=== PATIENT | male | born 1970 | race Caucasian/White ===

== ENCOUNTER 2024-02-01 15:44 | Emergency (ER) | payer BC, SELFPAY ==
[2024-02-01 15:51] VITALS: BP 118/65; PULSE 57; RESP 12; TEMP 37.6; O2SAT 98
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
[2024-02-01] MEDS: Acetaminophen 500 MG TAB 1000 MG PO (18:33)
[2024-02-01 18:53] VITALS: BP 118/65; PULSE 57; RESP 12; TEMP 37.6; O2SAT 98
== END 2024-02-01 18:55 | disposition home or self-care (01) ==
PROVIDERS: Emergency Provider Physician Assistant
DX: S22.42XA Multiple fractures of ribs, left side, initial encounter for closed fracture (principal); S42.025A Nondisplaced fracture of shaft of left clavicle, initial encounter for closed fracture; S27.0XXA Traumatic pneumothorax, initial encounter; V18.4XXA Pedal cycle driver injured in noncollision transport accident in traffic accident, initial encounter; Y92.482 Bike path as the place of occurrence of the external cause; Y93.55 Activity, bike riding
CPT/HCPCS: 71250; 99284; 72128; 72131